=== PATIENT | male | born 1950 | race Caucasian/White ===

== ENCOUNTER 2023-07-25 14:42 | Outpatient (CLI) | payer BC, MEDICARE | END 2023-07-25 14:43 | disposition home or self-care (01) | LOC: SCSMRI 14:42 | PROVIDERS: ATTEND Neurological Surgery | DX: M54.50 Low back pain, unspecified (principal); M79.606 Pain in leg, unspecified; M47.816 Spondylosis without myelopathy or radiculopathy, lumbar region; M89.38 Hypertrophy of bone, other site; M51.26 Other intervertebral disc displacement, lumbar region | CPT/HCPCS: 72148 ==

== ENCOUNTER 2023-08-06 08:28 | Outpatient (CLI) | payer BC, MEDICARE | END 2023-08-06 08:29 | disposition home or self-care (01) | LOC: SCSMRI 08:28 | PROVIDERS: ATTEND Neurological Surgery | DX: M87.051 Idiopathic aseptic necrosis of right femur (principal); M54.50 Low back pain, unspecified; M79.606 Pain in leg, unspecified; M87.052 Idiopathic aseptic necrosis of left femur; M94.8X5 Other specified disorders of cartilage, thigh; R93.7 Abnormal findings on diagnostic imaging of other parts of musculoskeletal system | CPT/HCPCS: 72149 ==